=== PATIENT | male | born 1985 | race African-American/Black ===

== ENCOUNTER 2023-09-22 00:01 | Emergency (ER) | payer BC ==
[~2023-09-22] VITALS: Ht 175.3 cm; Wt 86.2 kg
[2023-09-22 00:20] VITALS: BP 143/78; PULSE 65; RESP 17; TEMP 98; O2SAT 100
[2023-09-22] MEDS ORDERED: DOXY100T9 PO (00:56)
[2023-09-22 01:00] VITALS: BP 143/78; PULSE 65; RESP 17; TEMP 98; O2SAT 100
== END 2023-09-22 01:00 | disposition home or self-care (01) ==
LOC: MED 00:01
DX: L73.9 Follicular disorder, unspecified (principal); Z79.2 Long term (current) use of antibiotics
CPT/HCPCS: 99283